=== PATIENT | female | born 1955 | race Caucasian/White ===

== ENCOUNTER → 2016-07-01 | Outpatient (CLI) | payer BC ==
--- NOTE | 2016-07-01 13:20 | CT ---
CT CHEST FOR PULMONARY EMBOLISM. EXAMINATION TYPE: CT angio chest DATE OF EXAM: 07/01/2016 1:02 PM INDICATION: Patient has been having shortness for the past year CT DLP: 387 mGycm, Automated exposure control for dose reduction was used. CONTRAST: Patient injected with 100 mL of Omnipaque 300. COMPARISON: 12/04/2015 TECHNIQUE: CT of the chest is performed on a spiral scan at 2 mm thick sections. Study is performed with intravenous contrast timed for evaluation for pulmonary embolism. This will limit additional po rtions of the evaluation. 3-D MIP images reconstructed by the technologist are reviewed on the compu ter in the coronal and sagittal planes. FINDINGS: No persistent filling defects are evident to suggest an acute pulmonary embolism. Portion of the thyroid within the [id number] is normal. Tracheobronchial tree as visualized is nor mal. There is tortuosity of the aorta. Note is made of bilateral breast prostheses. No mediastinal or hilar adenopathy enlarged by CT criteria is evident. The ascending aorta diameter at the level of the main pulmonary artery is 2.7 cm. The main pulmonary artery diameter at the bifur cation is 2.5 cm. Lung windows are clear. Limited CT section through the upper abdomen are unremarkable. IMPRESSIONS: 1. No acute pulmonary embolism.
== END ==
LOC: RADCTMAIN 12:28
PROVIDERS: ATTEND Internal Medicine Hematology & Oncology
DX: R06.02 Shortness of breath (principal); R06.4 Hyperventilation
CPT/HCPCS: 71275; Q9967

== ENCOUNTER → 2018-03-06 | Outpatient (CLI) | payer BC ==
--- NOTE | 2018-03-09 11:34 | MM ---
Reason for exam: screening (asymptomatic). Last mammogram was performed 3 years and 6 months ago. History: Patient is postmenopausal. Retro-pectoral saline implants in both breasts, 2004. Took hormonal contraceptives for 5 years beginning at age 22. Physical Findings: A clinical breast exam by your physician is recommended on an annual basis and results should be correlated with mammographic findings. MG Screening Mammo Implant/CAD Bilateral CC, MLO, and ID view(s) were taken. Prior study comparison: September 06, 2014, bilateral MG screening mammo implant/CAD. May 27, 2011, CAD bilateral diagnostic mammogram. The breast tissue is heterogeneously dense. This may lower the sensitivity of mammography. There is no discrete abnormality. Bilateral subpectoral implants remonstrated. ASSESSMENT: Benign, BI-RAD 2 RECOMMENDATION: Routine screening mammogram of both breasts in 1 year.
== END | disposition home or self-care (01) ==
LOC: RADMAMWWP 14:04
PROVIDERS: ATTEND Obstetrics & Gynecology
DX: Z12.31 Encounter for screening mammogram for malignant neoplasm of breast (principal); Z98.82 Breast implant status
CPT/HCPCS: 77067

== ENCOUNTER → 2018-10-13 | Outpatient (CLI) | payer BC ==
--- NOTE | 2018-10-13 19:14 | ECHOF ---
Referral Reason:I34.0 Mitral Valve regurgitation MEASUREMENTS -------- HEIGHT: 157.5 cm WEIGHT: 59.0 kg BP: 122/67 RVIDd: 2.8 cm (< 3.3) IVSd: 0.9 cm (0.6 - 1.1) LVIDd: 4.3 cm (3.9 - 5.3) LVPWd: 0.8 cm (0.6 - 1.1) IVSs: 1.2 cm LVIDs: 2.9 cm LVPWs: 1.3 cm LA Diam: 2.9 cm (2.7 - 3.8) Ao Diam: 2.8 cm (2.0 - 3.7) AV Cusp: 1.9 cm (1.5 - 2.6) MV EXCURSION: 17.961 mm (> 18.000) MV EF SLOPE: 88 mm/s (70 - 150) EPSS: 0.5 cm MV E Arsenio: 0.73 m/s MV DecT: 209 ms MV A Arsenio: 0.90 m/s MV E/A Ratio: 0.82 RAP: 5.00 mmHg RVSP: 27.16 mmHg FINDINGS -------- Sinus rhythm. This was a technically good study. The left ventricular size is normal. Left ventricular wall thickness is normal. Overall left vent ricular systolic function is normal with, an EF between 60 - 65 %. The right ventricle is normal in size. Normal LA size by volume 22+/-6 ml/m2. The right atrium is normal in size. Aneurysmal Interatrial septum. The aortic valve is trileaflet and appears structurally normal. There is trace mitral regurgitation. Mild tricuspid regurgitation present. Right ventricular systolic pressure is normal at < 35 mmHg. The pulmonic valve was not well visualized. The aortic root size is normal. Normal inferior vena cava with normal inspiratory collapse consistent with estimated right atrial pre ssure of 5 mmHg. There is no pericardial effusion. CONCLUSIONS -------- 1. Sinus rhythm. 2. This was a technically good study. 3. The left ventricular size is normal. 4. Left ventricular wall thickness is normal. 5. Overall left ventricular systolic function is normal with, an EF between 60 - 65 %. 6. The right ventricle is normal in size. 7. Normal LA size by volume 22+/-6 ml/m2. 8. The right atrium is normal in size. 9. Aneurysmal Interatrial septum. 10. The aortic valve is trileaflet and appears structurally normal. 11. There is trace mitral regurgitation. 12. Mild tricuspid regurgitation present. 13. Right ventricular systolic pressure is normal at < 35 mmHg. 14. The pulmonic valve was not well visualized. 15. The aortic root size is normal. 16. Normal inferior vena cava with normal inspiratory collapse consistent with estimated right atrial pressure of 5 mmHg. 17. There is no pericardial effusion. CAMPUS DIRECTOR: Patricia Agarwal RDCS
== END | disposition home or self-care (01) ==
LOC: RADECHMAIN 13:33
PROVIDERS: ATTEND Family Medicine
DX: I07.1 Rheumatic tricuspid insufficiency (principal)
CPT/HCPCS: 93306

== ENCOUNTER → 2019-12-03 | Outpatient (CLI) | payer BC ==
--- NOTE | 2019-12-06 06:56 | XR ---
EXAMINATION TYPE: XR lumbar spine 2 or 3V DATE OF EXAM: 12/03/2019 CLINICAL HISTORY: Low back pain. History of bulging disc. TECHNIQUE: Frontal and lateral images of the lumbar spine are obtained. COMPARISON: CT abdomen and pelvis 2015 FINDINGS: There are 5 lumbar type vertebral bodies redemonstrated. The lumbar spine redemonstrates grade 1 retrolisthesis L2 on L3. Spine is somewhat straightened on lateral view similar to prior CT. Vertebral body heights are maintained. Moderate to severe disc space narrowing and spurring L2-L3 lev el redemonstrated. Moderate disc space narrowing with vacuum disc phenomenon L4-L5 and L5-S1 levels r edemonstrated. Additional mild multilevel anterior and lateral spurring. Overlying soft tissue is unr emarkable. IMPRESSION: As above.
== END | disposition home or self-care (01) ==
LOC: RAD 16:19
PROVIDERS: ATTEND Nurse Practitioner Family
DX: M99.73 Connective tissue and disc stenosis of intervertebral foramina of lumbar region (principal); M43.16 Spondylolisthesis, lumbar region; M51.36 Other intervertebral disc degeneration, lumbar region
CPT/HCPCS: 72100

== ENCOUNTER 2021-08-24 09:20 | Day surgery (SDC) | payer BC, MEDICARE ==
[2021-07-10 09:28] VITALS: BMI 25.2
[~2021-08-24 09:20] MED LIST: LACTATED RINGERS 1,000 ML IV SCH
[2021-08-24] MEDS ORDERED: LACTATED RINGERS 1,000 ML IV ONE (09:41)
[2021-08-24 09:46] VITALS: TEMP 97.8
[2021-08-24] MEDS ORDERED: PROPOFOL 10 MG/ML 20 ML VIAL IV ONE (10:36)
--- NOTE | 2021-08-24 10:54 | P.PCN ---
Date of Procedure: 08/24/21 Procedure(s) Performed: BRIEF HISTORY: Patient is a pleasant 66-year-old female scheduled for an elective colonoscopy as a part of screening for colorectal neoplasia. PROCEDURE PERFORMED: Colonoscopy snare polypectomy. PREOPERATIVE DIAGNOSIS: Screening for colon cancer. IV sedation per Anesthesia. PROCEDURE: After informed consent was obtained, the patient, was brought into the endoscopy unit. IV sedation was administered by Anesthesia under continuous monitoring. Digital rectal examination was normal. Initially the Olympus CF-160 flexible video colonoscope was then inserted in the rectum, gradually advanced into the cecum without any difficulty. Careful examination was performed as the scope was gradually being withdrawn. Ileocecal valve and the appendiceal orifice were visualized and appeared normal. Prep was excellent. Mucosa of the cecum, appeared normal. The ascending colon there was a 5 mm polyp that was removed by snare polypectomy. Rest of the ascending colon, transverse colon, descending colon, sigmoid colon, and rectum appeared normal. Retroflexion was performed in the rectum and no lesions were seen. Scattered sigmoid diverticulosis seen. The patient tolerated the procedure well. IMPRESSION: 5 mm ascending colon polyp status post polypectomy Scattered sigmoid diverticulosis RECOMMENDATIONS: Findings of this examination were discussed with the patient as well as a family. She was advised to follow with the biopsy results. If the biopsies an adenoma she can have a repeat colonoscopy in 5 years..
[2021-08-24 11:00] VITALS: RESP 16
[2021-08-24 11:16] VITALS: BP 116/76; PULSE 68
== END 2021-08-24 11:44 | disposition home or self-care (01) ==
LOC: ORWHC2ENDO 09:20
PROVIDERS: ATTEND Internal Medicine Gastroenterology
DX: Z12.11 Encounter for screening for malignant neoplasm of colon (principal); D12.2 Benign neoplasm of ascending colon; K57.30 Diverticulosis of large intestine without perforation or abscess without bleeding; Z86.010 Personal history of colon polyps; F32.A Depression, unspecified; Z98.890 Other specified postprocedural states; Z79.82 Long term (current) use of aspirin; Z79.899 Other long term (current) drug therapy; Z88.0 Allergy status to penicillin; Z88.2 Allergy status to sulfonamides; Z88.8 Allergy status to other drugs, medicaments and biological substances
CPT/HCPCS: 88305; 45385; J2704

== ENCOUNTER → 2021-08-28 | Outpatient (CLI) | payer MEDICARE, BC ==
--- NOTE | 2021-08-30 18:11 | MM ---
Reason for Exam: Screening (asymptomatic). Last mammogram was performed 3 year(s) and 6 month(s) ago. Patient History: Menarche at age 14. First Full-Term at age 23. Postmenopausal. Hormonal Contraceptives for 5 years from age 22 until age 27. 2004, Bilateral Implants. Risk Values: Dayanara 5 year model risk: 1.5%. NCI Lifetime model risk: 5.6%. Prior Study Comparison: 05/27/2011 Bilateral Diagnostic Mammogram, [facility]. 09/06/2014 Bilateral Screening Mammogram, [facility]. 03/06/2018 Bilateral Screening Mammogram, [facility]. Tissue Density: The breast tissue is heterogeneously dense. This may lower the sensitivity of mammography. Findings: Analyzed By CAD. Bilateral breast prostheses are present. No suspicious groups of microcalcifications, spiculated or lobular masses, Architectural distortion or other secondary signs of malignancy are mammographically apparent. Overall Assessment: Benign, BI-RAD 2 Management: Screening Mammogram of both breasts in 1 year. A negative mammogram report should not preclude additional follow up of suspicious palpable abnormalities. Patient should continue monthly self breast exam. A clinical breast exam by your physician is recommended on an annual basis and results should be correlated with mammographic findings. Electronically signed and approved by: Cristi Padilla D.O. Radiologis
== END | disposition home or self-care (01) ==
LOC: RADMAMWWP 15:36
PROVIDERS: ATTEND Family Medicine
DX: Z12.31 Encounter for screening mammogram for malignant neoplasm of breast (principal); Z78.0 Asymptomatic menopausal state
CPT/HCPCS: 77063; 77067

== ENCOUNTER → 2022-03-14 | Outpatient (CLI) | payer MEDICARE, BC ==
--- NOTE | 2022-03-14 10:02 | XR ---
EXAMINATION TYPE: XR chest 2V DATE OF EXAM: 03/14/2022 COMPARISON: 12/03/2019 HISTORY: Shortness of breath TECHNIQUE: Frontal and lateral views of the chest are obtained. FINDINGS: Scattered senescent parenchymal changes noted. Hyperinflation compatible with COPD. No evidence for infiltrate. No evidence for atelectasis. Heart size is stable. Mediastinal structures are stable and grossly unremarkable. No evidence for hilar prominence. Degenerative changes dorsal spine. IMPRESSION: 1. No evidence for acute pulmonary disease.
== END | disposition home or self-care (01) ==
LOC: RADXRMAIN 09:29
PROVIDERS: ATTEND Family Medicine
DX: R05.3 Chronic cough (principal); R06.02 Shortness of breath
CPT/HCPCS: 71046

== ENCOUNTER → 2022-10-10 | Outpatient (CLI) | payer MEDICARE, BC ==
[~2022-10-10] MED LIST changes: +COSYNTROPIN 0.25 MG VIAL IVP NR; -LACTATED RINGERS 1,000 ML IV SCH; +SODIUM CHLORIDE 0.9% 500 ML 500 ML in EMPTY BAG 1 BAG IV PRN
[2022-10-10 11:49] VITALS: BP 134/88; PULSE 83; RESP 16; TEMP 97.5
== END ==
LOC: PROCWHC3 11:32
PROVIDERS: ATTEND Family Medicine
DX: R53.83 Other fatigue (principal)
CPT/HCPCS: 82533; 82024; 96374; J0834; 96375

== ENCOUNTER → 2022-11-05 | Outpatient (CLI) | payer MEDICARE, BC ==
--- NOTE | 2022-11-05 11:31 | CA ---
Exercise Stress Test Report Name: Elena Moore Exam Date: 11/05/2022 09:08 Exam Location: [place] Stress Ht (in): 62 Wt (lb): 144 BSA: 1.66 Ordering Phys: Al Ramos DO Referring Phys: DELIA RAMOS,, Technologist: Robin Camacho Age: 67 Gender: F : 1955 Procedure CPT: Indications: R00.2 palpitations ICD-10 Codes: Patient History: Medications: Meds past 24 hrs: Pretest Chest Pain: STRESS TEST Etienne Protocol Exercise Duration (min:sec): 09:[address] Depressions (mm): Angina Score: Ho Score: Resting HR (bpm): 72 Peak HR (bpm): 142 Resting BP (mmHg): 126 / 82 Peak BP (mmHg): 168 / 77 MPHR: 154 Target HR: 131 % MPHR: 92 METS: 10.3 Total Dose: Peak Dose: Atropine: Double Product: 10717 BP Response: Stress Termination: Reached target heart rate Stress Symptoms: NO SYMPTOMS Stress Summary: ECG ANALYSIS Resting ECG: Normal sinus rhythm normal lites normal intervals Stress ECG: Patient exercised on Etienne protocol for 9 minutes achieving 10 meta 85% of predicted maximal heart rate without chest pain or diagnostic ST segment depression CONCLUSIONS Good exercise tolerance Negative stress test by EKG criteria Dr. Macho Salas MD (Electronically Signed) Final Date: 05 November 2022 11:30
--- NOTE | 2022-11-05 11:34 | CA ---
Transthoracic Echo Report Name: Elena Moore Age: 67 Gender: F : 1955 Exam Date: 11/05/2022 08:35 Exam Location: [place] Echo Ht (in): 62 Wt (lb): 144 Ordering Physician: Al Ivan DO Attending/Referring Phys: Microphone Boom Operator Patricia Agarwal RDCS Procedure CPT: Indications: R00.2 palpitations Cardiac Hx: Technical Quality: Good Contrast 1: Total Dose (mL): Contrast 2: Total Dose (mL): MEASUREMENTS (Male / Female) Normal Values 2D ECHO LV Diastolic Diameter PLAX 4.2 cm 4.2 - 5.9 / 3.9 - 5.3 cm LV Systolic Diameter PLAX 2.9 cm IVS Diastolic Thickness 0.7 cm 0.6 - 1.0 / 0.6 - 0.9 cm LVPW Diastolic Thickness 0.8 cm 0.6 - 1.0 / 0.6 - 0.9 cm LV Relative Wall Thickness 0.4 RV Internal Dim ED PLAX 3.0 cm LA Systolic Diameter LX 3.2 cm 3.0 - 4.0 / 2.7 - 3.8 cm LV Diastolic Volume MOD 4C 59.4 cm??? LV Systolic Volume MOD 4C 23.5 cm??? LV Ejection Fraction MOD 4C 60.5 % LV Cardiac Index MOD 4C 1305.5 cm???/min???m??? LV Diastolic Length 4C 7.6 cm LV Systolic Length 4C 5.9 cm LV Diastolic Volume MOD 2C 42.8 cm??? LV Systolic Volume MOD 2C 15.8 cm??? LV Ejection Fraction MOD 2C 63.1 % LV Cardiac Index MOD 2C 980.1 cm???/min???m??? LV Diastolic Length 2C 7.0 cm LV Systolic Length 2C 5.9 cm LA Volume 44.2 cm??? 18 - 58 / 22 - 52 cm??? M-MODE Aortic Root Diameter MM 3.0 cm MV E Point Septal Separation 0.6 cm AV Cusp Separation MM 2.0 cm DOPPLER AV Peak Velocity 134.9 cm/s AV Peak Gradient 7.3 mmHg MV Area PHT 2.7 cm??? Mitral E Point Velocity 70.7 cm/s Mitral A Point Velocity 85.3 cm/s Mitral E to A Ratio 0.8 MV Deceleration Time 277.6 ms MV E' Velocity 7.2 cm/s Mitral E to MV E' Ratio 9.8 TR Peak Velocity 236.2 cm/s TR Peak Gradient 22.3 mmHg Right Ventricular Systolic Press 26.7 mmHg FINDINGS Left Ventricle Left ventricular ejection fraction is estimated at 55-60 %. Left ventricular cavity size normal. Left ventricular wall thickness normal. Normal left ventricular wall motion. Right Ventricle Normal right ventricular size. Right ventricular systolic pressure within normal limits. Right Atrium Normal right atrial size. Left Atrium Normal left atrial size. Mitral Valve Structurally normal mitral valve. No evidence for mitral valve prolapse. No mitral stenosis. Trace mitral regurgitation. Aortic Valve Trileaflet aortic valve. No aortic valve stenosis or regurgitation. Tricuspid Valve Structurally normal tricuspid valve. Mild tricuspid regurgitation. Pulmonic Valve Structurally normal pulmonic valve. Trace to mild pulmonic regurgitation. Pericardium No pericardial effusion. Aorta Normal size aortic root and proximal ascending aorta. CONCLUSIONS Normal LV systolic function Previewed by: Dr. Macho Salas MD (Electronically Signed) Final Date: 05 November 2022 11:33
== END | disposition home or self-care (01) ==
LOC: RADECHMAIN 08:24
PROVIDERS: ATTEND Family Medicine
DX: R00.2 Palpitations (principal); R07.9 Chest pain, unspecified
CPT/HCPCS: 93017; 93306

== ENCOUNTER → 2024-01-27 | Outpatient (CLI) | payer MEDICARE, BC ==
--- NOTE | 2024-03-02 03:52 | EM ---
EVENT MONITOR STUDY: A 30-day event monitor. Predominant rhythm is sinus. No significant arrhythmia was noted. On the available rhythm strips, sinus rhythm and sinus tachycardia was noted. No significant abnormal rhythms were noted. The recordings were somewhat suboptimal. This patient did not trigger any events. FINAL IMPRESSION: Unremarkable 30-day event monitor with no significant arrhythmia. Predominant sinus rhythm with no evidence of any patient's trigger. Auto trigger reveal sinus rhythm and sinus tachycardia. MMODL / IJN: [id number] /
== END | disposition home or self-care (01) ==
LOC: RADECHMAIN 07:44
PROVIDERS: ATTEND Family Medicine
DX: R00.2 Palpitations (principal); R00.0 Tachycardia, unspecified
CPT/HCPCS: 93270